=== PATIENT | female | born 1945 | race Caucasian/White ===

== ENCOUNTER 2016-08-29 09:35 | Emergency (ER) | payer MEDICARE, MEDICAID ==
[~2016-08-29] VITALS: Ht 157.5 cm; Wt 47.6 kg
[~2016-08-29 09:35] MED LIST: /MOXI40TA PO; ACTI300C PO; AMLO2.5T PO; AMLO5TAB2 PO; ATEN100T PO; ATEN25TA PO; ATOR1TAB19 PO; BACT800T5 PO; BUDE3CAP PO; CEPH500C PO; CLON1TAB PO; DILA2TAB2 PO; DOXE10CA PO; ENDO7.5T7 PO; FLUO20TA PO; FLUO40CA PO; GABA-282 PO; HYDR12.55 PO; HYDR25TA7 PO; LASI40TA PO; LEVO500T PO; LISI-538 PO; LISI-542 PO; LISI5TAB PO; LOMO2.5T PO; LOMOTA PO; LOPE2TAB3 PO; METH75TA PO; MICR10CA PO; NEUR600T PO; NICO14PA EXT; OMEP20CA3 PO; OMEP20TA PO; ONDA4TAB2 PO; OXYC1TAB23 PO; PRED10PA PO; PRED10TA2 PO; TRAZ50TA2 PO; TRAZ50TA4 PO; TYLE325T5 PO; URSO300C2 PO; URSO300C3 PO; ZANA4TAB PO; ZEST2.5T3 PO; ZETI10TA21 PO
[2016-08-29 09:46] VITALS: BP 165/95
[2016-08-29] MEDS ORDERED: LORazepam 0.5 MG TAB PO STA (10:28)
[2016-08-29] MEDS ORDERED: KETOROLAC TROMETHAMINE 10 MG TAB PO ONE (10:30)
[2016-08-29 10:53] LABS: BASO % 0.3 % (0.0-1.0); EOS # 0.2 K/mm3 (0.0-0.50); EOS % 1.8 % (0.0-3.0); LARGE UNSTAINED CELL # 0.2 K/mm3 (0.0-0.4); LARGE UNSTAINED CELL % 1.9 % (0.0-4.0); LYMPH # 2.3 K/mm3 (1.5-4.5); LYMPH % 21.3 % (24.0-44.0); MEAN CORPUSCULAR HEMOGLOBIN 28.5 pg (27.0-33.0); MEAN CORPUSCULAR HGB CONC 32.7 g/dl (32.0-36.5); MEAN CORPUSCULAR VOLUME 86.9 fl (80.0-96.0); MONO # 0.7 K/mm3 (0.0-0.8); MONO % 6.6 % (0.0-5.0); NEUTROPHILS # 6.8 K/mm3 (1.8-7.7); NEUTROPHILS % 68.2 % (36.0-66.0); PLATELET COUNT, AUTOMATED 373 k/mm3 (150-450); WHITE BLOOD COUNT 9.9 K/mm3 (4.0-10.0)
[2016-08-29 11:16] LABS: ALBUMIN 3.6 GM/DL (3.2-5.2); ALBUMIN/GLOBULIN RATIO 0.95 (1.00-1.93); ALKALINE PHOSPHATASE 435 U/L (45-117); ALT/SGPT 57 U/L (12-78); ANION GAP 9 MEQ/L (8-16); AST/SGOT 47 U/L (15-37); BILIRUBIN,DIRECT < 0.1 MG/DL (0.0-0.2); BILIRUBIN,TOTAL 0.3 MG/DL (0.2-1.0); BLOOD UREA NITROGEN 16 MG/DL (7-18); CALCIUM LEVEL 9.4 MG/DL (8.8-10.2); CARBON DIOXIDE LEVEL 25 MEQ/L (21-32); CHLORIDE LEVEL 103 MEQ/L (98-107); CREATININE FOR GFR 1.15 MG/DL (0.55-1.02); GLOMERULAR FILTRATION RATE 49.7 (>39); GLUCOSE, FASTING 124 MG/DL (83-110); POTASSIUM SERUM 3.8 MEQ/L (3.5-5.1); SODIUM LEVEL 137 MEQ/L (136-145); TOTAL PROTEIN 7.4 GM/DL (6.4-8.2)
== END 2016-08-29 13:15 | disposition home or self-care (01) ==
LOC: EDBD 09:35 → M ED 11:10
DX: R07.0 Pain in throat (principal)

== ENCOUNTER → 2016-09-26 | Outpatient (CLI) | payer MEDICARE, MEDICAID ==
[~2016-09-26] MED LIST changes: +AMLO25TA PO; +DIPH2.5T14 PO; +HYDR-3713 PO; +IMOD2CAP PO; +LISI10TA4 PO; +ONDA4SOL PO; +VITA100041 PO; +XANA0.5T PO
[2016-09-26 11:48] LABS: BASO % 0.5 % (0.0-1.0); EOS # 0.1 K/mm3 (0.0-0.50); EOS % 1.2 % (0.0-3.0); LYMPH # 2.1 K/mm3 (1.5-4.5); LYMPH % 24.5 % (24.0-44.0); MEAN CORPUSCULAR HEMOGLOBIN 28.4 pg (27.0-33.0); MEAN CORPUSCULAR VOLUME 88.6 fl (80.0-96.0); MONO # 0.8 K/mm3 (0.0-0.8); MONO % 9.4 % (0.0-5.0); NEUTROPHILS # 5.4 K/mm3 (1.8-7.7); WHITE BLOOD COUNT 8.6 K/mm3 (4.0-10.0)
[2016-09-26 12:22] LABS: FOLATE 11.7 NG/ML; VITAMIN B12 LEVEL 1131 PG/ML
[2016-09-26 12:33] LABS: ALBUMIN 3.2 GM/DL (3.2-5.2); ALBUMIN/GLOBULIN RATIO 0.94 (1.00-1.93); ALKALINE PHOSPHATASE 185 U/L (45-117); ALT/SGPT 15 U/L (12-78); ANION GAP 11 MEQ/L (8-16); AST/SGOT 15 U/L (15-37); BILIRUBIN,TOTAL 0.3 MG/DL (0.2-1.0); BLOOD UREA NITROGEN 9 MG/DL (7-18); CALCIUM LEVEL 8.7 MG/DL (8.8-10.2); CARBON DIOXIDE LEVEL 26 MEQ/L (21-32); CHLORIDE LEVEL 100 MEQ/L (98-107); CHOLESTEROL LEVEL 192 MG/DL (<200); CREATININE FOR GFR 0.73 MG/DL (0.55-1.02); FREE T4 1.22 NG/DL (0.76-1.46); GLOMERULAR FILTRATION RATE > 60.0 (>39); GLUCOSE, FASTING 87 MG/DL (83-110); POTASSIUM SERUM 3.4 MEQ/L (3.5-5.1); SODIUM LEVEL 137 MEQ/L (136-145); TOTAL PROTEIN 6.6 GM/DL (6.4-8.2); TRIGLYCERIDES LEVEL 141 MG/DL (<150)
== END ==
LOC: M LAB 10:52
PROVIDERS: ATTEND Physician Assistant
DX: Z00.00 Encounter for general adult medical examination without abnormal findings (principal); I10 Essential (primary) hypertension; Z79.899 Other long term (current) drug therapy

== ENCOUNTER → 2016-09-26 | Outpatient (CLI) | payer MEDICARE, MEDICAID ==
[2016-09-26 12:19] LABS: ALBUMIN 3.3 GM/DL (3.2-5.2); ALBUMIN/GLOBULIN RATIO 1.06 (1.00-1.93); ALKALINE PHOSPHATASE 191 U/L (45-117); ALT/SGPT 15 U/L (12-78); AST/SGOT 13 U/L (15-37); BILIRUBIN,DIRECT < 0.1 MG/DL (0.0-0.2); BILIRUBIN,TOTAL 0.3 MG/DL (0.2-1.0); TOTAL PROTEIN 6.4 GM/DL (6.4-8.2)
== END ==
LOC: M LAB 10:56
PROVIDERS: ATTEND Internal Medicine Gastroenterology
DX: K80.51 Calculus of bile duct without cholangitis or cholecystitis with obstruction (principal)

== ENCOUNTER → 2016-09-27 | Day surgery (SDC) | payer MEDICARE, MEDICAID ==
[~2016-09-27] VITALS: Ht 160 cm; Wt 51.7 kg
[~2016-09-27] MED LIST changes: +CIPROFLOXACIN 400 MG in APPROPRIATE DILUENT 1 EA IV ONE; +GLYCOPYRROLATE INJ 0.2 MG/ML 2 ML VIAL As Ordered ONE; +ISOVUE-300 61% 50ML VIAL (Q9967) As Ordered ONE; +LR 1,000 ML IV SCH; +MIDAZOLAM INJ 2 MG/2 ML VIAL (J2250) As Ordered ONE; +NEOSTIGMINE 1MG/ML 5 ML SYRINGE (J2710) As Ordered ONE; +NS 500 ML IV ONE; +ONDANSETRON 4MG/2ML VIAL (J2405) As Ordered ONE; +ONDANSETRON 4MG/2ML VIAL (J2405) IV PRN; +PROPOFOL 500 MG/50 ML VIAL As Ordered ONE; +ROCURONIUM BROMIDE 50 MG/5 ML VIAL As Ordered ONE; +SUGAMMADEX SODIUM 500 MG/5 ML VIAL (BRIDION) As Ordered ONE; +dexameTHASONE 4 MG/ML 1ML VIAL (J1100) As Ordered ONE; +ePHEDrine SULFATE 25 MG/5 ML(5MG/ML) SYRINGE As Ordered ONE; +fentaNYL 100 MCG/2 ML INJECTION (J3010) As Ordered ONE; +fentaNYL 100 MCG/2 ML INJECTION (J3010) IV PRN; +metroNIDAZOLE 500 MG in APPROPRIATE DILUENT 1 EA IV ONE
--- NOTE | 2016-09-27 09:19 | ROOR ---
Patient Name: Mckayla Sheffield Procedure Date: 09/27/2016 7:20 AM Date of : 1945 Age: 71 Room: Main OR Gender: Female Note Status: Finalized Procedure: ERCP Indications: Abdominal pain of suspected biliary origin, Abnormal MRCP Providers: Gary MCDOWELL MD Referring MD: 1. No Referring Physician 1. No Referring Physician, Admin. Requesting Provider: Medicines: Monitored Anesthesia Care Complications: No immediate complications. Procedure: Pre-Anesthesia Assessment: - The heart rate, respiratory rate, oxygen saturations, blood pressure, adequacy of pulmonary ventilation, and response to care were monitored throughout the procedure. The Duodenoscope was introduced through the mouth, and advanced to the duodenum and used to inject contrast into the bile duct. The ERCP was accomplished without difficulty. The patient tolerated the procedure well. Findings: The perioperative educator film was normal. The scope was advanced to the major papilla in the descending duodenum. Examination of the pharynx, larynx and associated structures, and upper GI tract was normal except for large shallow antral gastric erosions. The major papilla was small, flat and appeared depressed or "inverted". No drainage was observed. A straight Roadrunner wire was passed into the biliary tree. The bile duct was then deeply cannulated over the guidewire. Contrast was injected. I personally interpreted the bile duct images. Ductal flow of contrast was adequate. Image quality was adequate. Opacification of the entire biliary tree except for the gallbladder was successful. The maximum diameter of the ducts was 10 mm distally. The common hepatic duct and proximal common bile duct are smaller in caliber 7-8 mm, but the transition is smooth. Mild Intrahepatic ductal prominence is also noted in the confluence of right and left hepatic ducts. The ampulla or distal lower main bile duct was partially obstructed by what appeared to be an eccentric stricture or mass. A 7 mm biliary sphincterotomy was made with a traction (standard) sphincterotome using ERBE electrocautery. There was no post-sphincterotomy bleeding. The biliary tree was swept with a 10 mm balloon starting at the bifurcation. Nothing was found. The lower third of the main bile duct was biopsied with a cold forceps for histology. Cells for cytology were obtained by brushing the lower third of the main bile duct. No spontaneous drainage of contrast was seen after papillotomy. One 10 mm by 4 cm covered metal stent was placed into the common bile duct. Bile flowed through the stent. The stent was in good position. 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 - Biopsied and brushed for cytology - A biliary sphincterotomy was performed. - The biliary tree was swept and nothing was found. - One covered metal stent was placed into the common bile duct. - Erosive gastropathy, shallow erosions in gastric antrum. Biopsied Recommendation: - Continue present medications. - Watch for pancreatitis, bleeding, perforation, and cholangitis. - Observe patient's clinical course following today's ERCP with therapeutic intervention. - Return to my office in 1 week. Gary Mcdowell MD Gary MCDOWELL MD 09/27/2016 9:19:04 AM This report has been signed electronically. Number of Addenda: 0 Note Initiated On: 09/27/2016 7:20 AM Estimated Blood Loss: Estimated blood loss: none.
--- NOTE | 2016-09-27 09:27 | REP ---
C-ARM VIEWS DURING ERCP: Multiple C-arm views are performed during ERCP exam. Contrast in injected into the common bile duct. The common bile duct is mildly dilated. There is abrupt zone of transition at its distal end. A stent is placed at that location. 2 minutes 17 seconds fluoroscopy time utilized. Signed by Sylvester Young MD 09/27/2016 04:44 P
[2016-09-27 11:27] VITALS: BP 139/66
== END | disposition home or self-care (01) ==
LOC: M SDC 05:57
PROVIDERS: ATTEND Internal Medicine Gastroenterology
DX: K83.9 Disease of biliary tract, unspecified (principal); K83.1 Obstruction of bile duct; R93.2 Abnormal findings on diagnostic imaging of liver and biliary tract; I10 Essential (primary) hypertension; K52.9 Noninfective gastroenteritis and colitis, unspecified; K76.9 Liver disease, unspecified; K21.9 Gastro-esophageal reflux disease without esophagitis; M12.9 Arthropathy, unspecified; F41.9 Anxiety disorder, unspecified; F32.9 Major depressive disorder, single episode, unspecified; G43.909 Migraine, unspecified, not intractable, without status migrainosus; F17.210 Nicotine dependence, cigarettes, uncomplicated; Z88.5 Allergy status to narcotic agent; Z79.899 Other long term (current) drug therapy; Z78.0 Asymptomatic menopausal state; Z98.51 Tubal ligation status
CPT/HCPCS: 43261; 43274; 74330; 88104; 88305; J0744; J1100; J2250; J2405; J2710; J3010; Q9967

== ENCOUNTER → 2016-11-10 | Day surgery (SDC) | payer MEDICARE, MEDICAID ==
[~2016-11-10] VITALS: Ht 158.8 cm; Wt 51.7 kg
[~2016-11-10] MED LIST changes: -CIPROFLOXACIN 400 MG in APPROPRIATE DILUENT 1 EA IV ONE; +HYDROmorphone HCL 1 MG/ML SYRINGE (J1170) IV PRN; +IBUP800T23 PO; +LR 1,000 ML IV ONE; +NICO14DI3 TD; -NS 500 ML IV ONE; +PERCOCET 5MG/325MG TAB PO PRN; +PROPOFOL 200 MG/20 ML VIAL As Ordered ONE; -PROPOFOL 500 MG/50 ML VIAL As Ordered ONE; +SUCCINYLCHOLINE 100 MG/5 ML SYRINGE (J0330) As Ordered ONE; -SUGAMMADEX SODIUM 500 MG/5 ML VIAL (BRIDION) As Ordered ONE; -ePHEDrine SULFATE 25 MG/5 ML(5MG/ML) SYRINGE As Ordered ONE; -metroNIDAZOLE 500 MG in APPROPRIATE DILUENT 1 EA IV ONE
--- NOTE | 2016-11-10 17:41 | ROOR ---
Patient Name: Mckayla Sheffield Procedure Date: 11/10/2016 4:31 PM Date of : 1945 Age: 71 Room: [facility] Gender: Female Note Status: Finalized Procedure: ERCP Indications: Evaluation and possible treatment of bile duct stone(s), Biliary stent removal, Bile duct stricture. Pt with PBC and known gallstones, episodes of biliary colic. 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 Cytology was negative for malignancy. She had papillotomy and covered wall stent placement to allow for remodeling of stenosis. Pt is back today for repeat ERCP, removal of stent, re biopsy of possible stricture. Providers: Gary BUENO MD Referring MD: MARYJANE Wilkes Requesting Provider: Medicines: Monitored Anesthesia Care Complications: No immediate complications. Procedure: Pre-Anesthesia Assessment: - The heart rate, respiratory rate, oxygen saturations, blood pressure, adequacy of pulmonary ventilation, and response to care were monitored throughout the procedure. The Endoscope was introduced through the mouth, and advanced to the duodenum and used to pull existing wall stent from the bile duct. The Duodenoscope was introduced through the mouth, and advanced to the duodenum and used to inject contrast into the bile duct. The ERCP was accomplished without difficulty. The patient tolerated the procedure well. Findings: The yard supervisor cotton gin film was normal. The esophagus was successfully intubated under direct vision. The scope was advanced to a normal major papilla in the descending duodenum without detailed examination of the pharynx, larynx and associated structures, and upper GI tract. The upper GI tract was grossly normal. One stent was removed from the biliary tree using a snare and sent for cytology. A straight Roadrunner wire was passed into the biliary tree. The bile duct was then deeply cannulated over the guidewire. Contrast was injected. Opacification of the entire biliary tree except for the gallbladder was successful. The maximum diameter of the ducts was 9 mm. The lower third of the main bile duct contained one stone, which was 7 mm in diameter. The lower third of the main bile duct contained a 1 cm long single smooth mild taper. This tapered segment is benign in appearance. The biliary tree was swept with a 10 mm balloon starting at the bifurcation. All stones were removed. Cells for cytology were obtained by brushing of the tapered portion of the distal CBD. Impression: - One covered wall stent was removed from the biliary tree and sent for cytology. - A previous sphincterotomy was present. - The biliary tree was swept. Choledocholithiasis was found. Complete removal was accomplished by balloon extraction - An occlusion cholangiogram was done. - A mild biliary taper without stricture was found in the distal CBD. The taper is smooth and was benign appearing. -cytology brushings were obtained. Recommendation: - Observe patient's clinical course. - Telephone endoscopist for pathology results in 2 weeks. - Surgical consultation for consideration of cholecystectomy at the next available appointment. Gary Bueno MD Gary BUENO MD 11/10/2016 5:41:40 PM This report has been signed electronically. Number of Addenda: 0 Note Initiated On: 11/10/2016 4:31 PM Estimated Blood Loss: Estimated blood loss: none.
--- NOTE | 2016-11-10 18:24 | REP ---
Intraoperative cholangiogram: History: Biliary stricture. 1 minute 41 seconds of fluoroscopy time is reported. Findings: A sequence of 57 last image hold fluoroscopic spot radiographs of the right upper abdomen document endoscopic guidewire cannulation of the common bile duct, biliary contrast injection, balloon catheter manipulation and common bile duct stent removal. Signed by William De Jesus MD 11/10/2016 07:00 P
[2016-11-10 18:45] VITALS: BP 166/78
== END | disposition home or self-care (01) ==
LOC: M SDC 13:36
PROVIDERS: ATTEND Internal Medicine Gastroenterology
DX: K80.51 Calculus of bile duct without cholangitis or cholecystitis with obstruction (principal); Z46.59 Encounter for fitting and adjustment of other gastrointestinal appliance and device; K83.1 Obstruction of bile duct; I10 Essential (primary) hypertension; K52.9 Noninfective gastroenteritis and colitis, unspecified; K74.3 Primary biliary cirrhosis; K21.9 Gastro-esophageal reflux disease without esophagitis; F41.9 Anxiety disorder, unspecified; F32.9 Major depressive disorder, single episode, unspecified; R06.83 Snoring; M51.9 Unspecified thoracic, thoracolumbar and lumbosacral intervertebral disc disorder; F17.290 Nicotine dependence, other tobacco product, uncomplicated; R51 Headache; Z88.5 Allergy status to narcotic agent; Z79.899 Other long term (current) drug therapy; Z98.51 Tubal ligation status
CPT/HCPCS: 43264; 43275; 74300; 88108; 88300; J0330; J1100; J2250; J2405; J2710; J3010; Q9967